=== PATIENT | female | born 1930 | race American Indian/Alaskan Native ===

== ENCOUNTER 2017-02-16 11:24 | Inpatient (IN) | payer MEDICARE ==
[2017-02-16 12:28] LABS: Anion Gap 19 mmol/L; Blood Urea Nitrogen 12 mg/dL (7-17); Calcium 9.3 mg/dL (8.4-10.2); Carbon Dioxide 23 mmol/L (22-30); Chloride 103.5 mmol/L (98-107); Glucose 117 mg/dL (65-100); Potassium 4.1 mmol/L (3.6-5.0); Sodium 141 mmol/L (137-145)
[2017-02-16] MEDS ORDERED: MORPHINE IV ONE (14:25)
[2017-02-16] MEDS ORDERED: ZOFRAN IV ONE (14:25)
--- NOTE | 2017-02-16 14:36 | Emergency Department Report ---
HPI - General Chief Complaint: Chest Pain Time Seen by Provider: 02/16/17 14:10 - HPI HPI: Room 4 The patient is an 86-year-old female presenting with a chief complaint of chest pain. The patient states for the past 2-3 days she has had intermittent left chest pain described as a soreness in nature. Patient states she has slight shortness of breath and diaphoresis associated with the chest pain. Patient denies nausea or vomiting. Patient also complains of dizziness. Patient states she's never had a stress test or cardiac catheterization. The patient currently gives her pain a score of 6/10 Location: Left chest Duration: 2-3 days Quality: Soreness Severity: 6/10 Modifying factors: [see above] Context: [see above] Mode of transportation: [not driving] ED Past Medical Hx - Past Medical History Hx GERD: Yes - Surgical History Past Surgical History?: No - Family History Family history: no significant - Social History Smoking Status: Never Smoker Substance Use Type: None - Medications Home Medications: Home Medications Medication Instructions Recorded Confirmed Last Taken Type HYDROcodone/ACETAMINOPHEN 1 tab PO PRN 12/26/13 02/16/17 02/16/17 History [Hydrocodon-Acetaminoph 7.5-325] Diazepam [Diazepam] 10 mg PO QHS 02/16/17 02/16/17 02/15/17 History Meloxicam [Mobic] 15 mg PO DAILY 02/16/17 02/16/17 Unknown History ED Review of Systems ROS: Stated complaint: BACK/UPPER CHEST PAIN Other details as noted in HPI Comment: All other systems reviewed and negative Constitutional: diaphoresis ENT: denies: ear pain, throat pain Respiratory: shortness of breath Cardiovascular: chest pain Endocrine: no symptoms reported Gastrointestinal: denies: abdominal pain, nausea, diarrhea Genitourinary: denies: urgency, dysuria, discharge Musculoskeletal: back pain Skin: denies: rash, lesions Neurological: denies: headache, weakness, paresthesias Psychiatric: denies: anxiety, depression Hematological/Lymphatic: denies: easy bleeding, easy bruising Physical Exam - Physical Exam Vital Signs: Vital Signs 02/16/17 11:50 Temperature 98.1 F Pulse Rate 82 Respiratory 20 Rate Blood Pressure 132/61 O2 Sat by Pulse 99 Oximetry Physical Exam: GENERAL: The patient is well-developed well-nourished female lying on stretcher not appearing to be in acute distress. [] HEENT: Normocephalic. Atraumatic. Extraocular motions are intact. Patient has moist mucous membranes. NECK: Supple. Trachea midline CHEST/LUNGS: Clear to auscultation. There is no respiratory distress noted. HEART/CARDIOVASCULAR: Regular. There is no tachycardia. There is no gallop rub or murmur. ABDOMEN: Abdomen is soft, nontender. Patient has normal bowel sounds. There is no abdominal distention. SKIN: There is no rash. There is no edema. There is no diaphoresis. NEURO: The patient is awake, alert, and oriented. The patient is cooperative. The patient has normal speech MUSCULOSKELETAL: There is no evidence of acute injury. ED Course Vital Signs 02/16/17 11:50 Temperature 98.1 F Pulse Rate 82 Respiratory 20 Rate Blood Pressure 132/61 O2 Sat by Pulse 99 Oximetry ED Medical Decision Making - Lab Data Result diagrams: 02/16/17 14:54 02/16/17 12:00 Laboratory Tests 02/16/17 02/16/17 02/16/17 12:00 14:54 14:54 WBC 7.3 RBC 4.23 Hgb 11.8 Hct 36.5 MCV 86 MCH 28 MCHC 32 RDW 14.2 Plt Count 207 Lymph % (Auto) Blogs Manager Barton % (Auto) Blogs Manager Eos % (Auto) Blogs Manager Baso % (Auto) Blogs Manager Lymph # Blogs Manager Barton # Blogs Manager Eos # Blogs Manager Baso # Blogs Manager Seg Neutrophils % Blogs Manager Seg Neutrophils # Blogs Manager Sodium 141 Potassium 4.1 Chloride 103.5 Carbon Dioxide 23 Anion Gap 19 BUN 12 Creatinine 0.6 L Estimated GFR > 60 BUN/Creatinine Ratio 20.00 Glucose 117 H Calcium 9.3 Troponin T < 0.010 < 0.010 - EKG Data -: EKG Interpreted by Me EKG shows normal: sinus rhythm Rate: normal - EKG Data When compared to previous EKG there are: no significant change Interpretation: unchanged when compared t (02/25/2012) - Radiology Data Radiology results: image reviewed (chest x-ray) interpreted by me: Chest x-ray-no focal infiltrates, no pneumothorax - Differential Diagnosis ACS, GERD, pericarditis Critical care attestation.: If time is entered above; I have spent that time in minutes in the direct care of this critically ill patient, excluding procedure time. ED Disposition Clinical Impression: Chest pain Disposition: OP ADMITTED IP TO THIS HOSP Is pt being admited?: Yes Does the pt Need Aspirin: Yes Condition: Stable Instructions: Chest Pain (ED) Referrals: PRIMARY CARE,MD [Primary Care Provider] - 3-5 Days Time of Disposition: 15:33 (hospitalist notified)
--- NOTE | 2017-02-16 14:43 | Admit Criteria Form ---
Admission Criteria Documentation: CHEST PAIN Clinical Indications for Admission to Inpatient Care (Place 'X' for any and all applicable criteria): Admission is indicated for chest pain and ANY ONE of the following(1)(2)(3)(4)(5 ): [ ]I. Angina with acute coronary syndrome (Also use Myocardial Infarction or Angina guideline) [ ]II. Hemodynamic instability [ ]III. Angina needing acute intervention as indicated by ALL of the following( 11)(12): [ ]a) Unstable angina is present as indicated by angina that is ANY ONE of the following: [ ]i) New onset [ ]ii) Nocturnal [ ]iii) Prolonged at rest [ ]iv) Progressive [ ]b) Angina warrants acute intervention as indicated by ANY ONE of the following: [ ]i) Recurrent angina (e.g, not responding as previously to treatment) [ ]ii) Angina at rest or with low-level activities despite initial medical therapy [ ]iii) New or presumably new ST-segment depression on ECG [ ]iv) Signs or symptoms of heart failure (eg, dyspnea, pulmonary edema) [ ]v) New or worsening mitral regurgitation [ ]vi) Hemodynamic instability [ ]vii) Dangerous arrhythmia (eg, sustained ventricular tachycardia) [ ]viii) History of percutaneous coronary intervention within 6 months [ ]ix) History of coronary artery bypass graft surgery [ ]x) LEFTY risk score of 2 or greater[A] [ ]xi) History of Diabetes(14) [ ]xii) High-risk cardiac ischemia findings on noninvasive testing (e.g, echocardiogram, treadmill testing, nuclear scan) [ ]xiii) Chronic renal insufficiency (ie, estimated GFR less than 60 mL/min/1.732m) [ ]xiv) Left ventricular ejection fraction less than 40% [ ]IV. Evidence of LA (eg, cardiac biomarkers positive, ST-segment elevation on ECG) also use Myocardial Infarction Criteria Form. [ ]V. Pulmonary edema [ ]. Respiratory distress [ ]VII. Chest pain indicative of serious diagnosis other than coronary artery disease (eg, aortic dissection) [ ]VIII. Contraindications and/or Inappropriate clinical situations for Observational Care in patients with Chest Pain, when ANY ONE of the following is required: [ ]a) Patient with risk factor for pulmonary embolism, acute coronary syndrome and myocardial infarction (18) [ ]b) Patient with Pulmonary embolism require an average LOS of 4.3 days, therefore emergency department observation management is inappropriate 18,23 [ ]c) Painful condition/s in the elderly, have the highest rate of recidivism after emergency department observation management (10.8%) 20,21,22 [ ]d) Elevated cardiac biomarker requires intensive and exhaustive care (19) [ X]IX. General contraindications and/or Inappropriate clinical situations for Observational Care in patients with Chest Pain, when ANY ONE of the following is required: [X ]a) Prediction of prolongation of LOS based on ANY ONE of the following may be considered as a contraindication for observational care 2, 3, 4, 5, 6, 7, 8, 9, 10, 11 [X ]i) Age > 65 yrs. [ ]ii) Patient arriving by ambulance [ ]iii) Patient with high acuity [ ]iv) Patient requiring vital sign monitoring [ ]v) Patient on IV medication [ ]b) Systolic blood pressures 180mmHg 3,12 [ ]c) Patient with altered mental status including delirium and other alteration of consciousness, (3) [ ]d) Patient whose discharge disposition will be to a penitentiary home or rehabilitation home should not be managed in Emergency Department Observation Unit. CMS rule requires 3 days hospital stay before such placement. 3,13 [ ]e) Patient with failure to thrive due to broad array of etiologies 3,16,17 [ ]f) Inability to ambulate 3,14 Extended stay beyond goal length of stay may be needed for (1)(28): [ ]a) Specific condition diagnosed after evaluation (eg, pulmonary embolism, aortic dissection) [ ]b) Unstable angina [ ]c) Continued suspicion of acute coronary syndrome with inability to complete needed cardiac evaluation (eg, patient clinically unable to undergo stress testing) [ ]d) Myocardial infarction (Contents from ANGINA and CHEST PAIN clinical indications for admission to inpatient care have been integrated in this form) The original [facility] [employer] [employer] content created by [employer] has been revised. The portions of the content which have been revised are identified through the use of italic text or in bold, and [facility] [employer] has neither reviewed nor approved the modified material. All other unmodified content is copyright [facility] [employer]. Please see references footnoted in the original [facility] [employer] edition 2016 Admission Criteria Met: Yes
--- NOTE | 2017-02-16 15:00 | XRay Report ---
AP CHEST: HISTORY: chest pain AP view of the chest demonstrates a normal mediastinal and cardiac contour with clear lungs and normal bony and soft tissue structures. IMPRESSION: Unremarkable AP chest.
[2017-02-16 15:06] LABS: Hematocrit 36.5 % (30.3-42.9); Hemoglobin 11.8 gm/dl (10.1-14.3); Mean Corpuscular HGB Conc 32 % (30-34); Mean Corpuscular Hemoglobin 28 pg (28-32); Mean Corpuscular Volume 86 fl (79-97); Platelet Count 207 K/mm3 (140-440); Red Blood Count 4.23 M/mm3 (3.65-5.03); Red Cell Distribution Width 14.2 % (13.2-15.2); White Blood Count 7.3 K/mm3 (4.5-11.0)
[2017-02-16] MEDS ORDERED: NITRO-BID 2% TP ONE (15:34)
[2017-02-16] MEDS ORDERED: ASPIRIN PO ONE (15:34)
[2017-02-16] MEDS ORDERED: MILK OF MAGNESIA PO PRN (15:54)
[2017-02-16] MEDS ORDERED: DUONEB 0.5 MG-3 MG/3 ML SOLN IH PRN (15:54)
[2017-02-16] MEDS ORDERED: TYLENOL PO PRN (15:54)
[2017-02-16] MEDS ORDERED: DULCOLAX PR PRN (15:54)
[2017-02-16] MEDS ORDERED: ZOFRAN IV PRN (15:54)
[2017-02-16] MEDS ORDERED: SODIUM CHLORIDE FLUSH SYRINGE 10 ML IV PRN (15:56)
[2017-02-16] MEDS ORDERED: NORCO 7.5/325 PO SCH (16:00)
--- NOTE | 2017-02-16 16:02 | History and Physical Report ---
History of Present Illness Chief complaint: My chest hurts History of present illness: 86 YO Female with GERD, Obesity presents to ED for evaluation. Pt states that she has experienced pain in her chest for that past 3 days with worsening symptoms over the past 1 day. Pt states that the pain is 6/10, intermittent, localized to the left chest, nonradiating, but is associated with shortness of breath and diaphoresis. Patient denies NVD, Palpitations, Syncope, Vertigo, Seizures, Loss of Consciousness, productive cough, orthopnea, PND,Skin rashes, or recent ill contacts . Past History Past Medical History: GERD Past Surgical History: No surgical history, Other (reviewed) Social history: . denies: smoking, alcohol abuse, prescription drug abuse Family history: diabetes, hypertension Medications and Allergies Allergies Allergy/AdvReac Type Severity Reaction Status Date / Time No Known Allergies Allergy Unverified 12/26/13 15:50 Home Medications Medication Instructions Recorded Confirmed Last Taken Type HYDROcodone/ACETAMINOPHEN 1 tab PO PRN 12/26/13 02/16/17 02/16/17 History [Hydrocodon-Acetaminoph 7.5-325] Diazepam [Diazepam] 10 mg PO QHS 02/16/17 02/16/17 02/15/17 History Meloxicam [Mobic] 15 mg PO DAILY 02/16/17 02/16/17 Unknown History Active Meds: Active Medications Acetaminophen (Tylenol) 650 mg PO Q4H PRN PRN Reason: Pain MILD(1-3)/Fever >100.5/HERNANDEZ Acetaminophen/Hydrocodone Bitart ([place] 7.5/325) 1 each PO PRN JOSE E Albuterol/Ipratropium (Duoneb 0.5 Mg-3 Mg/3 Ml Soln) 1 ampul IH Q6HRT PRN PRN Reason: Wheezing Bisacodyl (Dulcolax) 10 mg [place] QDAY PRN PRN Reason: Constipation unrelieved by MOM Diazepam (Valium) 10 mg PO QHS JOSE E Magnesium Hydroxide (Milk Of Magnesia) 30 ml PO Q4H PRN PRN Reason: Constipation Miscellaneous Medication (Meloxicam [Mobic]) 15 mg PO DAILY [facility] Ondansetron HCl (Zofran) 4 mg IV Q8H PRN PRN Reason: N/V unrelieved by Reglan Sodium Chloride (Sodium Chloride Flush Syringe 10 Ml) 10 ml IV PRN PRN PRN Reason: LINE FLUSH Review of Systems All systems: negative Cardiovascular: chest pain Exam - Constitutional Vitals: Temp Pulse Resp BP Pulse Ox 98.1 F 65 16 130/63 100 02/16/17 11:50 02/16/17 14:33 02/16/17 14:33 02/16/17 14:33 02/16/17 14:33 General appearance: Present: obese - EENT Eyes: Present: PERRL ENT: hearing intact, clear oral mucosa - Neck Neck: Present: supple, normal ROM - Respiratory Respiratory effort: normal Respiratory: bilateral: CTA - Cardiovascular Heart Sounds: Present: S1 & S2. Absent: rub, click - Extremities Extremities: pulses symmetrical, No edema Peripheral Pulses: within normal limits - Abdominal General gastrointestinal: Present: soft, non-tender, non-distended, normal bowel sounds Female genitourinary: Present: normal - Integumentary Integumentary: Present: clear, warm, dry - Musculoskeletal Musculoskeletal: gait normal, strength equal bilaterally - Psychiatric Psychiatric: appropriate mood/affect, intact judgment & insight - Neurologic Neurologic: CNII-XII intact, moves all extremities Results - Labs CBC & Chem 7: 02/16/17 14:54 02/16/17 12:00 Labs: Abnormal lab results 02/16/17 Range/Units 12:00 Creatinine 0.6 L (0.7-1.2) mg/dL Glucose 117 H (65-100) mg/dL Assessment and Plan - Patient Problems (1) ACS (acute coronary syndrome) Current Visit: Yes Status: Acute Plan to address problem: Chest Pain protocol: serial cardiac enzymes, ekg, telemetry, cardiology consulted, echo, stress test. (2) GERD (gastroesophageal reflux disease) Current Visit: Yes Status: Acute Qualifiers: Esophagitis presence: E Plan to address problem: ppi therapy (3) Obesity Current Visit: Yes Status: Acute Qualifiers: Obesity type: O Obesity severity: O Plan to address problem: Pt counseled regarding increased physical activity, balanced diet, (4) DVT prophylaxis Current Visit: Yes Status: Acute
[2017-02-16] MEDS ORDERED: PROVENTIL IH PRN (16:07)
[2017-02-16 17:28] LABS: Creatine Kinase MB 2.5 ng/mL (0.0-4.0)
[2017-02-16 17:29] LABS: Creatine Kinase 83 units/L (30-135)
[2017-02-16] MEDS: VALIUM PO SCH (22:07)
[2017-02-16 23:29] LABS: Creatine Kinase MB 2.4 ng/mL (0.0-4.0)
[2017-02-16 23:30] LABS: Creatine Kinase 73 units/L (30-135)
[2017-02-17] MEDS: PROTONIX PO SCH (09:00)
[2017-02-17] MEDS: MOBIC PO SCH (09:00)
[2017-02-17] MEDS ORDERED: NON-FORMULARY (Meloxicam [Mobic] 15 MG) PO SCH (10:00)
[2017-02-17] MEDS ORDERED: LEXISCAN IV ONE ×2 (10:45→10:50)
--- NOTE | 2017-02-17 11:30 | Consultation ---
History of Present Illness Consult date: 02/17/17 Consult reason: chest pain History of present illness: 86 YO Female with GERD, Obesity presents to ED for evaluation. Pt states that she has experienced pain in her chest for that past 3 days with worsening symptoms over the past 1 day. Pt states that the pain is 6/10, intermittent, localized to the left chest, nonradiating, but is associated with shortness of breath and diaphoresis. Patient denies NVD, Palpitations, Syncope, Vertigo, Seizures, Loss of Consciousness, productive cough, orthopnea, PND. Past History Past Medical History: GERD Past Surgical History: No surgical history, Other (reviewed) Social history: . denies: smoking, alcohol abuse, prescription drug abuse Family history: diabetes, hypertension Medications and Allergies Allergies Allergy/AdvReac Type Severity Reaction Status Date / Time No Known Allergies Allergy Unverified 12/26/13 15:50 Home Medications Medication Instructions Recorded Confirmed Last Taken Type HYDROcodone/ACETAMINOPHEN 1 tab PO PRN 12/26/13 02/16/17 02/16/17 History [Hydrocodon-Acetaminoph 7.5-325] Diazepam [Diazepam] 10 mg PO QHS 02/16/17 02/16/17 02/15/17 History Meloxicam [Mobic] 15 mg PO DAILY 02/16/17 02/16/17 Unknown History Active Meds: Active Medications Acetaminophen (Tylenol) 650 mg PO Q4H PRN PRN Reason: Pain MILD(1-3)/Fever >100.5/HERNANDEZ Acetaminophen/Hydrocodone Bitart ([place] 7.5/325) 1 each PO Q4H PRN PRN Reason: Pain, Moderate (4-6) Albuterol (Proventil) 2.5 mg IH Q4HRT PRN PRN Reason: Shortness Of Breath Bisacodyl (Dulcolax) 10 mg [place] QDAY PRN PRN Reason: Constipation unrelieved by MOM Diazepam (Valium) 10 mg PO QHS [facility] Last Admin: 02/16/17 22:07 Dose: 10 mg Magnesium Hydroxide (Milk Of Magnesia) 30 ml PO Q4H PRN PRN Reason: Constipation Meloxicam (Mobic) 15 mg PO DAILY [facility] Last Admin: 02/17/17 09:00 Dose: 15 mg Ondansetron HCl (Zofran) 4 mg IV Q8H PRN PRN Reason: N/V unrelieved by Reglan Pantoprazole Sodium (Protonix) 40 mg PO QDAY JOSE E Last Admin: 02/17/17 09:00 Dose: 40 mg Sodium Chloride (Sodium Chloride Flush Syringe 10 Ml) 10 ml IV PRN PRN PRN Reason: LINE FLUSH Review of Systems All systems: negative Physical Examination Vital Signs Temp Pulse Resp BP Pulse Ox 98.1 F 82 20 132/61 99 02/16/17 11:50 02/16/17 11:50 02/16/17 11:50 02/16/17 11:50 02/16/17 11:50 General appearance: no acute distress HEENT: Positive: PERRL Neck: Positive: neck supple, Bruit Cardiac: Positive: Reg Rate and Rhythm, Systolic Murmur Lungs: Positive: Normal Exam Abdomen: Positive: Soft Extremities: Absent: edema Results 02/16/17 14:54 02/16/17 12:00 Cardiac Enzymes 02/16/17 02/16/17 Range/Units 16:15 22:50 CK-MB (CK-2) 2.5 2.4 (0.0-4.0) ng/mL Lipids 02/16/17 Range/Units 16:15 Triglycerides 54 (2-149) mg/dL Cholesterol 200 H (50-199) mg/dL HDL Cholesterol 73 H (40-59) mg/dL Cholesterol/HDL Ratio 2.73 % Assessment and Plan Chest Pain MPI 05/02/2016 - No ischemia Severe aortic stenosis Paradoxical low flow low gradient aortic stenosis Severe mitral stenosis (MVA 0.7-0.8 cm2 by continuity) History of GERD Recommendations: Cancel stress test Proceed with LHC and RHC on monday asa 81 mg po daily
[2017-02-17] MEDS: HALFPRIN EC PO SCH (14:00)
--- NOTE | 2017-02-17 14:32 | Progress Note ---
Assessment and Plan Assessment and plan: -Chest pain -Severe , MS, cardiac catheterization on Monday History Interval history: Patient seen and examined. Follow up on chest pain. Overnight uneventful. No sob, n/v or severe headaches. Imaging, old records, testing, labs, nursing notes reviewed. Plan discussed with patient. Hospitalist Physical - Physical exam Narrative exam: GEN: WDWN, NAD, AWAKE, ALERT, ORIENTATED CVS: RRR, NORMAL S1S2 LUNGS/CHEST: CTA B, NORMAL CHEST EXPANSION B, GOOD AIR ENTRY B ABD: SOFT NTND, GBS, NO REBOUND OR GUARDING EXT/SKIN: NO SIGNIFICANT EDEMA OR RASH MSK: FROM X 4 EXTREMITIES NEURO: CN 2-12 GROSSLY INTACT, NO new FOCAL DEFICITS PSY: CALM - Constitutional Vitals: Temp Pulse Resp BP Pulse Ox 97.5 F L 78 20 120/59 98 02/17/17 07:39 02/17/17 11:42 02/17/17 11:42 02/17/17 11:42 02/17/17 11:42 General appearance: Present: no acute distress Results - Labs CBC & Chem 7: 02/16/17 14:54 02/16/17 12:00 Labs: Laboratory Last Values WBC 7.3 K/mm3 (4.5-11.0) 02/16/17 14:54 RBC 4.23 M/mm3 (3.65-5.03) 02/16/17 14:54 Hgb 11.8 gm/dl (10.1-14.3) 02/16/17 14:54 Hct 36.5 % (30.3-42.9) 02/16/17 14:54 MCV 86 fl (79-97) 02/16/17 14:54 MCH 28 pg (28-32) 02/16/17 14:54 MCHC 32 % (30-34) 02/16/17 14:54 RDW 14.2 % (13.2-15.2) 02/16/17 14:54 Plt Count 207 K/mm3 (140-440) 02/16/17 14:54 Lymph % (Auto) Line Inspector 02/16/17 14:54 [place] % (Auto) Line Inspector 02/16/17 14:54 Eos % (Auto) Line Inspector 02/16/17 14:54 Baso % (Auto) Line Inspector 02/16/17 14:54 Lymph # Line Inspector 02/16/17 14:54 [place] # Line Inspector 02/16/17 14:54 Eos # Line Inspector 02/16/17 14:54 Baso # Line Inspector 02/16/17 14:54 Seg Neutrophils % Line Inspector 02/16/17 14:54 Seg Neutrophils # Line Inspector 02/16/17 14:54 Sodium 141 mmol/L (137-145) 02/16/17 12:00 Potassium 4.1 mmol/L (3.6-5.0) 02/16/17 12:00 Chloride 103.5 mmol/L (98-107) 02/16/17 12:00 Carbon Dioxide 23 mmol/L (22-30) 02/16/17 12:00 Anion Gap 19 mmol/L 02/16/17 12:00 BUN 12 mg/dL (7-17) 02/16/17 12:00 Creatinine 0.6 mg/dL (0.7-1.2) L 02/16/17 12:00 Estimated GFR > 60 ml/min 02/16/17 12:00 BUN/Creatinine Ratio 20.00 % 02/16/17 12:00 Glucose 117 mg/dL (65-100) H 02/16/17 12:00 Calcium 9.3 mg/dL (8.4-10.2) 02/16/17 12:00 Total Creatine Kinase 73 units/L (30-135) 02/16/17 22:50 CK-MB (CK-2) 2.4 ng/mL (0.0-4.0) 02/16/17 22:50 CK-MB (CK-2) Rel Index 3.2 (0-4) 02/16/17 22:50 Troponin T < 0.010 ng/mL (0.00-0.029) 02/16/17 22:50 Triglycerides 54 mg/dL (2-149) 02/16/17 16:15 Cholesterol 200 mg/dL (50-199) H 02/16/17 16:15 LDL Cholesterol Direct 117 mg/dL (50-130) 02/16/17 16:15 HDL Cholesterol 73 mg/dL (40-59) H 02/16/17 16:15 Cholesterol/HDL Ratio 2.73 % 02/16/17 16:15
[2017-02-17] MEDS: VALIUM PO SCH (23:07)
[2017-02-18] MEDS: HALFPRIN EC PO SCH (09:14)
[2017-02-18] MEDS: MOBIC PO SCH (09:14)
[2017-02-18] MEDS: PROTONIX PO SCH (09:15)
--- NOTE | 2017-02-18 13:09 | Progress Note ---
Assessment and Plan Assessment and plan: Patient is 86-year-old woman with history of GERD who presents with chest pain shortness of breath. 2D Echo: severe concentric left ventricular hypertrophy, estimated EF 60-65 %, abnormal left ventricular systolic function, severe aortic leaflet calcification, severe aortic stenosis. Paradoxical low flow low gradient severe aortic stenosis. Mean gradient aortic valve is 27 mmHg, aortic valve area E to 0.65 cm, mild aortic regurgitation, severe mitral stenosis. -Chest pain -Severe , MS, cardiac catheterization on Monday History Interval history: Patient seen and examined. Follow up on chest pain which has resolved. Overnight uneventful. No sob, n/v or severe headaches. Imaging, old records, testing, labs, nursing notes reviewed. Plan discussed with patient. Hospitalist Physical - Physical exam Narrative exam: GEN: WDWN, NAD, AWAKE, ALERT, ORIENTATED CVS: RRR, NORMAL S1S2 LUNGS/CHEST: CTA B, NORMAL CHEST EXPANSION B, GOOD AIR ENTRY B ABD: SOFT NTND, GBS, NO REBOUND OR GUARDING EXT/SKIN: NO SIGNIFICANT EDEMA OR RASH MSK: FROM X 4 EXTREMITIES NEURO: CN 2-12 GROSSLY INTACT, NO new FOCAL DEFICITS PSY: CALM - Constitutional Vitals: Temp Pulse Resp BP Pulse Ox 97.8 F 72 18 140/63 98 02/18/17 11:17 02/18/17 11:29 02/18/17 11:17 02/18/17 11:17 02/18/17 11:17 General appearance: Present: no acute distress Results - Labs CBC & Chem 7: 02/16/17 14:54 02/16/17 12:00 Labs: Laboratory Last Values WBC 7.3 K/mm3 (4.5-11.0) 02/16/17 14:54 RBC 4.23 M/mm3 (3.65-5.03) 02/16/17 14:54 Hgb 11.8 gm/dl (10.1-14.3) 02/16/17 14:54 Hct 36.5 % (30.3-42.9) 02/16/17 14:54 MCV 86 fl (79-97) 02/16/17 14:54 MCH 28 pg (28-32) 02/16/17 14:54 MCHC 32 % (30-34) 02/16/17 14:54 RDW 14.2 % (13.2-15.2) 02/16/17 14:54 Plt Count 207 K/mm3 (140-440) 02/16/17 14:54 Lymph % (Auto) [place]ender 02/16/17 14:54 [place] % (Auto) [place] Tender 02/16/17 14:54 Eos % (Auto) [place]ender 02/16/17 14:54 Baso % (Auto) [place] 02/16/17 14:54 Lymph # [place] Tender 02/16/17 14:54 [place] # Grey Tender 02/16/17 14:54 Eos # [place] Tender 02/16/17 14:54 Baso # [place]ender 02/16/17 14:54 Seg Neutrophils % [place] Tender 02/16/17 14:54 Seg Neutrophils # [place] 02/16/17 14:54 Sodium 141 mmol/L (137-145) 02/16/17 12:00 Potassium 4.1 mmol/L (3.6-5.0) 02/16/17 12:00 Chloride 103.5 mmol/L (98-107) 02/16/17 12:00 Carbon Dioxide 23 mmol/L (22-30) 02/16/17 12:00 Anion Gap 19 mmol/L 02/16/17 12:00 BUN 12 mg/dL (7-17) 02/16/17 12:00 Creatinine 0.6 mg/dL (0.7-1.2) L 02/16/17 12:00 Estimated GFR > 60 ml/min 02/16/17 12:00 BUN/Creatinine Ratio 20.00 % 02/16/17 12:00 Glucose 117 mg/dL (65-100) H 02/16/17 12:00 Calcium 9.3 mg/dL (8.4-10.2) 02/16/17 12:00 Total Creatine Kinase 73 units/L (30-135) 02/16/17 22:50 CK-MB (CK-2) 2.4 ng/mL (0.0-4.0) 02/16/17 22:50 CK-MB (CK-2) Rel Index 3.2 (0-4) 02/16/17 22:50 Troponin T < 0.010 ng/mL (0.00-0.029) 02/16/17 22:50 Triglycerides 54 mg/dL (2-149) 02/16/17 16:15 Cholesterol 200 mg/dL (50-199) H 02/16/17 16:15 LDL Cholesterol Direct 117 mg/dL (50-130) 02/16/17 16:15 HDL Cholesterol 73 mg/dL (40-59) H 02/16/17 16:15 Cholesterol/HDL Ratio 2.73 % 02/16/17 16:15
--- NOTE | 2017-02-18 13:43 | Progress Note ---
Assessment and Plan Chest Pain MPI 05/02/2016 - No ischemia Severe aortic stenosis Paradoxical low flow low gradient aortic stenosis Severe mitral stenosis (MVA 0.7-0.8 cm2 by continuity) History of GERD Recommendations: Proceed with LHC and RHC on monday Subjective Date of service: 02/18/17 Interval history: No cardiac complaints. No further chest pain. Objective Vital Signs Temp Pulse Pulse Pulse Pulse Resp BP 02/18/17 11:29 72 02/18/17 11:17 97.8 F 63 18 140/63 02/18/17 09:15 18 02/18/17 09:14 18 02/18/17 07:46 98.1 F 64 18 135/60 02/18/17 05:33 97.8 F 76 18 127/65 02/18/17 00:00 98.2 F 70 18 123/60 02/17/17 22:00 65 18 02/17/17 20:01 97.8 F 70 18 133/62 02/17/17 15:40 98.0 F 80 20 122/58 Pulse Ox 02/18/17 11:29 02/18/17 11:17 98 02/18/17 09:15 02/18/17 09:14 02/18/17 07:46 100 02/18/17 05:33 100 02/18/17 00:00 99 02/17/17 22:00 02/17/17 20:01 97 02/17/17 15:40 98 - Physical Examination HEENT: Positive: PERRL Neck: Positive: neck supple, Bruit Cardiac: Positive: Reg Rate and Rhythm, Systolic Murmur Lungs: Positive: clear to auscultation Abdomen: Positive: Soft Extremities: Absent: edema
[2017-02-18] MEDS: VALIUM PO SCH (21:41)
[2017-02-18] MEDS: NORCO 7.5/325 PO PRN (21:43)
[2017-02-19] MEDS: MOBIC PO SCH (10:19)
[2017-02-19] MEDS: NORCO 7.5/325 PO PRN ×2 (10:20→21:48)
[2017-02-19] MEDS: HALFPRIN EC PO SCH (10:21)
[2017-02-19] MEDS: PROTONIX PO SCH (10:22)
--- NOTE | 2017-02-19 10:54 | Progress Note ---
Assessment and Plan Assessment and plan: Patient is 86-year-old woman with history of GERD who presents with chest pain shortness of breath. 2D Echo: severe concentric left ventricular hypertrophy, estimated EF 60-65 %, abnormal left ventricular systolic function, severe aortic leaflet calcification, severe aortic stenosis. Paradoxical low flow low gradient severe aortic stenosis. Mean gradient aortic valve is 27 mmHg, aortic valve area E to 0.65 cm, mild aortic regurgitation, severe mitral stenosis. -Chest pain -Severe , MS, cardiac catheterization on Monday spoke with daughter Anne History Interval history: Patient seen and examined. Follow up on chest pain which has resolved. Overnight uneventful. No sob, n/v or severe headaches. Imaging, old records, testing, labs, nursing notes reviewed. Plan discussed with patient. Hospitalist Physical - Physical exam Narrative exam: GEN: WDWN, NAD, AWAKE, ALERT, ORIENTATED CVS: RRR, NORMAL S1S2 LUNGS/CHEST: CTA B, NORMAL CHEST EXPANSION B, GOOD AIR ENTRY B ABD: SOFT NTND, GBS, NO REBOUND OR GUARDING EXT/SKIN: NO SIGNIFICANT EDEMA OR RASH MSK: FROM X 4 EXTREMITIES NEURO: CN 2-12 GROSSLY INTACT, NO new FOCAL DEFICITS PSY: CALM - Constitutional Vitals: Temp Pulse Resp BP Pulse Ox 97.6 F 70 20 115/53 97 02/19/17 07:22 02/19/17 07:22 02/19/17 07:22 02/19/17 07:22 02/19/17 07:22 General appearance: Present: no acute distress Results - Labs CBC & Chem 7: 02/16/17 14:54 02/16/17 12:00 Labs: Laboratory Last Values WBC 7.3 K/mm3 (4.5-11.0) 02/16/17 14:54 RBC 4.23 M/mm3 (3.65-5.03) 02/16/17 14:54 Hgb 11.8 gm/dl (10.1-14.3) 02/16/17 14:54 Hct 36.5 % (30.3-42.9) 02/16/17 14:54 MCV 86 fl (79-97) 02/16/17 14:54 MCH 28 pg (28-32) 02/16/17 14:54 MCHC 32 % (30-34) 02/16/17 14:54 RDW 14.2 % (13.2-15.2) 02/16/17 14:54 Plt Count 207 K/mm3 (140-440) 02/16/17 14:54 Lymph % (Auto) Final Assembly Worker 02/16/17 14:54 [place] % (Auto) Final Assembly Worker 02/16/17 14:54 Eos % (Auto) Final Assembly Worker 02/16/17 14:54 Baso % (Auto) Final Assembly Worker 02/16/17 14:54 Lymph # Final Assembly Worker 02/16/17 14:54 [place] # Final Assembly Worker 02/16/17 14:54 Eos # Final Assembly Worker 02/16/17 14:54 Baso # Final Assembly Worker 02/16/17 14:54 Seg Neutrophils % Final Assembly Worker 02/16/17 14:54 Seg Neutrophils # Final Assembly Worker 02/16/17 14:54 Sodium 141 mmol/L (137-145) 02/16/17 12:00 Potassium 4.1 mmol/L (3.6-5.0) 02/16/17 12:00 Chloride 103.5 mmol/L (98-107) 02/16/17 12:00 Carbon Dioxide 23 mmol/L (22-30) 02/16/17 12:00 Anion Gap 19 mmol/L 02/16/17 12:00 BUN 12 mg/dL (7-17) 02/16/17 12:00 Creatinine 0.6 mg/dL (0.7-1.2) L 02/16/17 12:00 Estimated GFR > 60 ml/min 02/16/17 12:00 BUN/Creatinine Ratio 20.00 % 02/16/17 12:00 Glucose 117 mg/dL (65-100) H 02/16/17 12:00 Calcium 9.3 mg/dL (8.4-10.2) 02/16/17 12:00 Total Creatine Kinase 73 units/L (30-135) 02/16/17 22:50 CK-MB (CK-2) 2.4 ng/mL (0.0-4.0) 02/16/17 22:50 CK-MB (CK-2) Rel Index 3.2 (0-4) 02/16/17 22:50 Troponin T < 0.010 ng/mL (0.00-0.029) 02/16/17 22:50 Triglycerides 54 mg/dL (2-149) 02/16/17 16:15 Cholesterol 200 mg/dL (50-199) H 02/16/17 16:15 LDL Cholesterol Direct 117 mg/dL (50-130) 02/16/17 16:15 HDL Cholesterol 73 mg/dL (40-59) H 02/16/17 16:15 Cholesterol/HDL Ratio 2.73 % 02/16/17 16:15
--- NOTE | 2017-02-19 11:04 | Progress Note ---
Assessment and Plan Chest Pain MPI 05/02/2016 - No ischemia Severe aortic stenosis Paradoxical low flow low gradient aortic stenosis Severe mitral stenosis (MVA 0.7-0.8 cm2 by continuity) History of GERD Recommendations: Proceed with LHC and RHC on monday Subjective Date of service: 02/19/17 Interval history: No further chest pain Objective Vital Signs Temp Pulse Pulse Pulse Resp BP BP 02/19/17 07:22 97.6 F 70 20 115/53 02/19/17 05:32 97.6 F 61 20 124/60 02/19/17 01:00 98.0 F 72 20 102/50 02/19/17 00:20 75 20 02/19/17 00:18 75 02/18/17 20:52 97.6 F 70 20 126/63 02/18/17 15:36 98.6 F 60 18 119/55 02/18/17 11:29 72 02/18/17 11:17 97.8 F 63 18 140/63 Pulse Ox 02/19/17 07:22 97 02/19/17 05:32 97 02/19/17 01:00 98 02/19/17 00:20 100 02/19/17 00:18 02/18/17 20:52 100 02/18/17 15:36 99 02/18/17 11:29 02/18/17 11:17 98 - Physical Examination HEENT: Positive: PERRL Neck: Positive: neck supple, Bruit Cardiac: Positive: Reg Rate and Rhythm, Systolic Murmur Lungs: Positive: clear to auscultation Abdomen: Positive: Soft, Active Bowel Sounds Extremities: Absent: edema
[2017-02-19] MEDS: VALIUM PO SCH (21:44)
[2017-02-20 07:10] LABS: Hematocrit 35.8 % (30.3-42.9); Hemoglobin 11.7 gm/dl (10.1-14.3); Mean Corpuscular HGB Conc 33 % (30-34); Mean Corpuscular Hemoglobin 28 pg (28-32); Mean Corpuscular Volume 86 fl (79-97); Platelet Count 187 K/mm3 (140-440); Red Blood Count 4.18 M/mm3 (3.65-5.03); Red Cell Distribution Width 13.9 % (13.2-15.2)
[2017-02-20 07:20] LABS: INR 1.03 (0.87-1.13)
[2017-02-20 07:21] LABS: Partial Thromboplastin Time 46.1 Sec. (24.2-36.6)
[2017-02-20 08:31] LABS: Anion Gap 16 mmol/L; Blood Urea Nitrogen 12 mg/dL (7-17); Calcium 8.7 mg/dL (8.4-10.2); Carbon Dioxide 24 mmol/L (22-30); Chloride 104.9 mmol/L (98-107); Glucose 88 mg/dL (65-100); Potassium 4.3 mmol/L (3.6-5.0); Sodium 141 mmol/L (137-145)
[2017-02-20] MEDS ORDERED: NACL 0.9% 500 ML 500 ML ONE (08:39)
[2017-02-20] MEDS ORDERED: ECOTRIN PO ONE ×2 (08:40→09:30)
[2017-02-20] MEDS ORDERED: SUBLIMAZE ONE (08:58)
[2017-02-20] MEDS ORDERED: HEPARIN/NS 5000 UNIT/500ML(CATH LAB) 1,500 ML IR ONE (08:58)
[2017-02-20] MEDS ORDERED: XYLOCAINE 2% INFILTRATI ONE (08:58)
[2017-02-20] MEDS ORDERED: VERSED ONE (08:58)
[2017-02-20] MEDS ORDERED: NACL 0.9% 500 ML 500 ML IV SCH (10:00)
--- NOTE | 2017-02-20 10:49 | Event Note ---
Date: 02/20/17 Cardiac cath completed, no complications: Findings 1. Mild 2. Mild MS 3. Normal coronaries. OK for cardiac discharge, follow up [address] Duarte.
[2017-02-20] MEDS: HALFPRIN EC PO SCH (10:50)
[2017-02-20] MEDS: PROTONIX PO SCH (10:55)
[2017-02-20] MEDS: MOBIC PO SCH (10:55)
[2017-02-20] MEDS ORDERED: NACL 0.9% 1000 ML 1,000 ML IV SCH (11:00)
[2017-02-20 11:19] LABS: Basophils % (Manual) 0 % (0.0-1.8); Blastocytes % (Manual) 0 %; Diff Status Complete; RBC Morphology Normal
--- NOTE | 2017-02-20 11:59 | Discharge Summary ---
Providers - Providers Date of Admission: 02/16/17 15:54 Date of discharge: 02/20/17 Attending physician: PATRICK HAMM 02/16/17 Consult to Cardiac Rehabilitation [CONS] Routine Reason For Exam: Phase I 02/16/17 22:43 Consult to Physician [CONS] Routine Consulting Provider: MERLINE QUINONES Reason For Exam: chest pain Place consult to:: Dr. Quinones Notified:: Viktor RN Phone number called:: Was contact made?: Yes If yes, spoke with:: Klarissa-answering service Time called:: 07:44 02/20/17 10:59 Consult to Cardiac Rehabilitation [CONS] Routine Reason For Exam: Cardiac Rehab Evaluation Primary care physician: CAP SEWER Hospitalization Condition: Stable Hospital course: Patient is 86-year-old woman with history of GERD who presents with chest pains and shortness of breath. 2D Echo: severe concentric left ventricular hypertrophy , estimated EF 60-65 %, abnormal left ventricular systolic function, severe aortic leaflet calcification, severe aortic stenosis. Paradoxical low flow low gradient severe aortic stenosis. Mean gradient aortic valve is 27 mmHg, aortic valve area E to 0.65 cm, mild aortic regurgitation, severe mitral stenosis. -Chest pain, GERD related, added protonix -OA on mobic, add protonix - Mild , mild MS spoke with daughter Anne 02/1902/20/[address] Quinones, right and left heart catherization Cardiac cath completed, no complications: Findings 1. Mild 2. Mild MS 3. Normal coronaries. OK for cardiac discharge, follow up [address] Duarte. Disposition: DISCHARGED TO HOME OR SELFCARE Time spent for discharge: 33 minutes Core Measure Documentation - Palliative Care Palliative Care/ Comfort Measures: Not Applicable - Core Measures Any of the following diagnoses?: none - VTE Discharge Requirements Deep Vein Thrombosis/Pulmonary Embolism Present on Admission: No Has pt received <5 days of overlap therapy or INR<2.0: No Anticoagulant overlap therapy prescribed at discharge: No Contraindication No Overlap Therapy order at DC: Not Indicated Exam - Physical Exam Narrative exam: GEN: WDWN, NAD, AWAKE, ALERT, ORIENTATED CVS: RRR, NORMAL S1S2 LUNGS/CHEST: CTA B, NORMAL CHEST EXPANSION B, GOOD AIR ENTRY B ABD: SOFT NTND, GBS, NO REBOUND OR GUARDING EXT/SKIN: NO SIGNIFICANT EDEMA OR RASH MSK: FROM X 4 EXTREMITIES NEURO: CN 2-12 GROSSLY INTACT, NO new FOCAL DEFICITS PSY: CALM - Constitutional Vitals: Temp Pulse Resp BP Pulse Ox 97.8 F 68 18 119/53 100 02/19/17 20:30 02/20/17 03:12 02/19/17 20:30 02/19/17 20:30 02/19/17 20:30 Plan Activity: advance as tolerated (no strenous activites until cleared by PCP. ) Diet: low salt Special Instructions: record daily BP diary Follow up with: PRIMARY CARE, [Primary Care Provider] - 3-5 Days KRYSTAL DUARTE MD [Staff Physician] - 7 Days Prescriptions: Pantoprazole [Protonix TAB] 40 mg PO QDAY #30 tablet
--- NOTE | 2017-02-20 12:42 | Cardiac Catherization Report ---
CARDIAC CATHETERIZATION REASON FOR PROCEDURE: The patient is an 86-year-old woman who presented with shortness of breath. Since 2012, she has been managed conservatively by her primary vp patient, Dr. Duarte for mild mitral and mild aortic stenosis. On this presentation, she was recommended for right and left heart catheterization for further assessment of her aortic and mitral stenotic lesions. PROCEDURE: The patient was prepped and draped in a sterile fashion after informed consent. The right femoral artery was entered using the Seldinger technique followed by placement of a 6-Uzbek sheath. Similarly, the right femoral vein was entered and an 8 Uzbek sheath placed. A Gardiner-Mandy catheter was then advanced into the pulmonary artery position. A right Judkin's catheter was advanced into the left ventricle. Simultaneous right and left heart filling pressures were measured. Cardiac output was measured using the thermodilution method. The Gardiner-Mandy catheter was then withdrawn through the right heart, and right heart pressures were measured on pullback of the Gardiner-Mandy. The right Rick catheter was then pulled back across the aortic valve for transaortic pressure measurements. Selective right and left coronary angiography was then performed using the right Rick, and a #4 left Rick. The catheters were then removed, sheaths removed in the arterial site and hemostasis achieved over the arterial site using an Angio-Seal device. Manual compression was used for hemostasis over the venous site. The procedure was well tolerated by the patient and there were no complications. FINDINGS: HEMODYNAMICS: The mean right atrial pressure was 8. Right ventricular pressure was 40/10. Pulmonary artery pressure was 40/20. The mean pulmonary artery wedge pressure was 20-25. Left ventricular end-diastolic pressure was 20. Cardiac output was 4.5 liters per minute. MITRAL STENOSIS: Simultaneous left ventricular end diastolic and pulmonary artery wedge pressures revealed a mean transmitral valve gradient of 10.6 mmHg. Using the Gorlin equation, the mitral valve area was calculated at 1.7 square cm. This was consistent with mild to moderate mitral stenosis. AORTIC STENOSIS: On pullback across the aortic valve, the transaortic aehy-om-qnfe gradient was 15-20 mmHg. This was consistent with only mild aortic stenosis. CORONARY ANGIOGRAPHY: The left main coronary artery was angiographically normal. There were mild irregularities of the mid LAD, mild irregularities of the diagonal branches. No significant obstructive lesions were noted in the LAD system. The circumflex artery was a large dominant system, that also contained mild luminal irregularities with no significant obstructive lesions. The right coronary artery was a small caliber nondominant vessel that was angiographically normal. Left ventricle angiography was not performed. Echocardiogram has previously documented a normal left ventricular systolic function. CONCLUSION: 1. Mild to moderate increase in right and left heart filling pressures, mild pulmonary hypertension. 2. Mild to moderate mitral stenosis, with a transmitral pressure gradient of 10.6, mitral valve area 1.76 square cm. 3. Mild aortic stenosis with a transaortic gvzl-cf-pxpq gradient of 15-20 mmHg. 4. No significant coronary artery disease, essentially angiographically near normal coronary arteries. Left circumflex system is dominant. RECOMMENDATION: 1. Continue conservative management of aortic and mitral stenosis. If symptoms persist, further evaluation of mitral valve pathology with a transesophageal echocardiography should be considered. 2. Risk factor modification and medical therapy. Assist in timing of possible intervention. [facility]# [id number] SREE/BURAK
[2017-02-20 19:30] VITALS: BP 123/59
== END 2017-02-20 18:30 | disposition home or self-care (01) | DRG 392 ==
LOC: ED 11:24 → 4A 15:54
PROVIDERS: ADMIT Internal Medicine; ATTEND Internal Medicine
PROC: 4A023N8 Measurement of Cardiac Sampling and Pressure, Bilateral, Percutaneous Approach (ICD-10-PCS; principal; 2017-02-20)
PROC: B2111ZZ Fluoroscopy of Multiple Coronary Arteries using Low Osmolar Contrast (ICD-10-PCS; 2017-02-20)
DX: K21.9 Gastro-esophageal reflux disease without esophagitis (principal); I35.0 Nonrheumatic aortic (valve) stenosis; E66.9 Obesity, unspecified; I05.0 Rheumatic mitral stenosis; Z83.3 Family history of diabetes mellitus; Z82.49 Family history of ischemic heart disease and other diseases of the circulatory system; Z68.31 Body mass index [BMI] 31.0-31.9, adult
CPT/HCPCS: 36415; 71010; 80048; 80061; 82550; 82553; 84484; 85007; 85025; 85610; 85730; 93005; 93010; 93306; 93460; 96374; 96375; C1760; C1769; C1894; J1644; J2250; J2270; J2405; J2785; J3010; J7030; J7040; Q9967

== ENCOUNTER 2018-03-23 09:50 | Outpatient (CLI) | payer OTHER, MEDICARE | END 2018-03-23 09:51 | disposition home or self-care (01) | LOC: LABHHL 09:50 | PROVIDERS: ATTEND Surgery | DX: L82.1 Other seborrheic keratosis (principal); K21.9 Gastro-esophageal reflux disease without esophagitis; E66.9 Obesity, unspecified; M06.9 Rheumatoid arthritis, unspecified | CPT/HCPCS: 88304 ==

== ENCOUNTER 2019-03-20 15:49 | Emergency (ER) | payer MEDICARE ==
--- NOTE | 2019-03-20 15:54 | Emergency Department Report ---
Blank Doc - Documentation Documentation: This is a 88-year-old female that presents with left lower abdominal pain. Also has cough wit chest congestion. Deneis any n/v. This initial assessment/diagnostic orders/clinical plan/treatment(s) is/are subject to change based on patient's health status, clinical progression and re- assessment by fellow clinical providers in the ED. Further treatment and workup at subsequent clinical providers discretion. Patient/guardians urged not to elope from the ED as their condition may be serious if not clinically assessed and managed. Initial orders include: 1- Patient sent to MAIN ED for further evaluation and treatment 2- labs 3- UA 4- Xr abd
--- NOTE | 2019-03-20 16:32 | XRay Report ---
PROCEDURE: XR ABD SERIES W CXR 1V TECHNIQUE: Flat and upright view of the abdomen were obtained as well as a PA chest x-ray HISTORY: abd pain with cough COMPARISONS: None FINDINGS: The heart is enlarged. Calcification of the mitral annulus appears to be present. The pulmonary vascu lature minimally distended although appears sharp. No pulmonary edema or pleural effusions identified . Small amount of left basilar atelectasis appears to be present. Lungs otherwise are clear. No effus ions are seen. No acute bone abnormalities are identified. Nonspecific bowel gas pattern present. No evidence for obstruction, ileus or free air. Moderate amoun t of stool seen throughout most of the colon. There is a coarse calcification overlying the pelvis me asuring approximately 2.7 cm which may represent a calcified uterine fibroid. IMPRESSION: Mild cardiomegaly and pulmonary venous hypertension changes. Small amount of left basilar atelectasis appears to be present. Calcification of mitral annulus also suspected. Coarse calcification lower pelvis suggest calcified uterine fibroid. Moderate amount of stool seen throughout colon. No acute abnormalities are identified.. This document is electronically signed by Ricci Gan MD., Mar 20 2019 04:29:46 PM ET
[2019-03-20 16:59] LABS: Bilirubin,Urine NEG (Negative); Blood,Urine NEG (Negative); Color,Urine Yellow (Yellow); Mucus,Urine FEW /HPF
[2019-03-20 16:59] LABS: Basophils % (Auto) 0.2 % (0.0-1.8); Eosinophils # (Auto) 0.4 K/mm3 (0.0-0.4); Eosinophils % (Auto) 3.7 % (0.0-4.3); Hematocrit 37.1 % (30.3-42.9); Hemoglobin 12.3 gm/dl (10.1-14.3); Lymphocytes # (Auto) 2.3 K/mm3 (1.2-5.4); Lymphocytes % (Auto) 23.6 % (13.4-35.0); Mean Corpuscular HGB Conc 33 % (30-34); Mean Corpuscular Volume 86 fl (79-97); Monocytes # (Auto) 0.9 K/mm3 (0.0-0.8); Monocytes % (Auto) 8.8 % (0.0-7.3); Platelet Count 201 K/mm3 (140-440); Red Blood Count 4.31 M/mm3 (3.65-5.03); Red Cell Distribution Width 14.2 % (13.2-15.2)
[2019-03-20 17:24] LABS: Alanine Aminotransferase 16 units/L (7-56); Albumin 3.5 g/dL (3.9-5); BUN/Creatinine Ratio 24; Blood Urea Nitrogen 12 mg/dL (7-17); Calcium 9.2 mg/dL (8.4-10.2); Hemolysis Index 1
[2019-03-20 17:25] LABS: Bilirubin,Direct < 0.2 mg/dL (0-0.2)
--- NOTE | 2019-03-20 18:27 | Emergency Department Report ---
ED General Adult HPI - General Chief complaint: Abdominal Pain Stated complaint: ABD PAIN Time Seen by Provider: 03/20/19 15:52 Source: patient Mode of arrival: Ambulatory Limitations: No Limitations - History of Present Illness Initial comments: 88-year-old relatively healthy of [place] female with past medical history of GERD sent to the emergency department by Dr. ALICIA Lewis for evaluation of shortness of breath, any productive cough. Due to his assessment to date. States that today he she will have 1-2 week history of cough and congestion associated chest pain. States she's had a heavy mucous production and occasional fever sensations. No nausea, vomiting or diarrhea. No palpitations. Ms. Aden states that she's been having some yellow mucus production rather frequently and coughing spells call surgically did get achy, sharp pain to the left rib region. She reports no hemoptysis, hematemesis, hematochezia. No foreign travel, no kn own sick contacts. She denies any wheezing. Stated that she is still mobile however, this does cause coughing spells. Denies any loss of bowel or bladder, back pain. To be having some dark urine was increased urgency. No burning sensation. No hematuria noted. She denies any trauma. Denies any abdominal pain. States that she did have some pain is a few weeks ago, but that is not an issue today. Nor was it an issue yesterday. Radiation: non-radiation Quality: dull Consistency: constant - Related Data Home Medications Medication Instructions Recorded Confirmed Last Taken HYDROcodone/ACETAMINOPHEN 1 tab PO PRN 12/26/13 02/16/17 02/16/17 [Hydrocodon-Acetaminoph 7.5-325] Meloxicam [Mobic] 15 mg PO DAILY 02/16/17 02/16/17 Unknown diazePAM [Diazepam] 10 mg PO QHS 02/16/17 02/16/17 02/15/17 Previous Rx's Medication Instructions Recorded Last Taken Type Pantoprazole [Protonix TAB] 40 mg PO QDAY #30 tablet 02/20/17 Unknown Rx ALBUTEROL Inhaler (OR & NICU) 1 puff IH Q4-6H PRN #1 inha 03/21/19 Unknown Rx [ProAir HFA Inhaler] Azithromycin [Zithromax] 250 mg PO QDAY #4 tablet 03/21/19 Unknown Rx levoFLOXacin [Levaquin TAB] 500 mg PO QDAY #7 tablet 03/21/19 Unknown Rx Allergies Allergy/AdvReac Type Severity Reaction Status Date / Time No Known Allergies Allergy Unverified 12/26/13 15:50 ED Review of Systems ROS: Stated complaint: ABD PAIN Other details as noted in HPI Constitutional: denies: chills, fever Eyes: denies: eye pain, eye discharge, vision change ENT: denies: ear pain, throat pain Respiratory: denies: cough, shortness of breath, wheezing Cardiovascular: denies: chest pain, palpitations Endocrine: no symptoms reported Gastrointestinal: denies: abdominal pain, nausea, diarrhea Genitourinary: denies: urgency, dysuria, discharge Musculoskeletal: denies: back pain, joint swelling, arthralgia Skin: denies: rash, lesions Neurological: denies: headache, weakness, paresthesias Psychiatric: denies: anxiety, depression Hematological/Lymphatic: denies: easy bleeding, easy bruising ED Past Medical Hx - Past Medical History Previous Medical History?: Yes Hx GERD: Yes Hx Arthritis: Yes - Surgical History Past Surgical History?: Yes Additional Surgical History: Knee surgery - Social History Smoking Status: Never Smoker - Medications Home Medications: Home Medications Medication Instructions Recorded Confirmed Last Taken Type HYDROcodone/ACETAMINOPHEN 1 tab PO PRN 12/26/13 02/16/17 02/16/17 History [Hydrocodon-Acetaminoph 7.5-325] Meloxicam [Mobic] 15 mg PO DAILY 02/16/17 02/16/17 Unknown History diazePAM [Diazepam] 10 mg PO QHS 02/16/17 02/16/17 02/15/17 History Pantoprazole [Protonix TAB] 40 mg PO QDAY #30 tablet 02/20/17 Unknown Rx ALBUTEROL Inhaler (OR & NICU) 1 puff IH Q4-6H PRN #1 inha 03/21/19 Unknown Rx [ProAir HFA Inhaler] Azithromycin [Zithromax] 250 mg PO QDAY #4 tablet 03/21/19 Unknown Rx levoFLOXacin [Levaquin TAB] 500 mg PO QDAY #7 tablet 03/21/19 Unknown Rx ED Physical Exam - General Limitations: No Limitations General appearance: alert, in no apparent distress - Head Head exam: Present: atraumatic, normocephalic - Eye Eye exam: Present: normal appearance, PERRL, EOMI Pupils: Present: normal accommodation - ENT ENT exam: Present: normal exam, mucous membranes moist - Neck Neck exam: Present: normal inspection - Respiratory Respiratory exam: Present: normal lung sounds bilaterally, wheezes, rhonchi. Absent: respiratory distress, chest wall tenderness, accessory muscle use, decreased breath sounds - Cardiovascular Cardiovascular Exam: Present: regular rate, normal rhythm. Absent: systolic murmur, diastolic murmur, rubs, gallop - GI/Abdominal GI/Abdominal exam: Present: soft, normal bowel sounds - Extremities Exam Extremities exam: Present: normal inspection - Back Exam Back exam: Present: normal inspection - Neurological Exam Neurological exam: Present: alert, oriented X3 - Psychiatric Psychiatric exam: Present: normal affect, normal mood - Skin Skin exam: Present: warm, dry, intact, normal color. Absent: rash ED Course Vital Signs 03/20/19 03/21/19 15:53 01:52 Temperature 98.7 F 98.6 F Pulse Rate 88 78 Respiratory 16 16 Rate Blood Pressure 165/70 139/59 O2 Sat by Pulse 98 98 Oximetry ED Medical Decision Making - Lab Data Result diagrams: 03/20/19 16:39 03/20/19 16:39 - Medical Decision Making 88-year-old relatively healthy of [place] female with past medical history of GERD sent to the emergency department by Dr. ALICIA Lewis for evaluation of shortness of breath, any productive cough. Due to his assessment to date. States that today he she will have 1-2 week history of cough and congestion associated chest pain. States she's had a heavy mucous production and occasional fever sensatio ns. No nausea, vomiting or diarrhea. No palpitations. Critical care attestation.: If time is entered above; I have spent that time in minutes in the direct care of this critically ill patient, excluding procedure time. ED Disposition Clinical Impression: Pulmonary infiltrate present on computed tomography, Cough Condition: Stable Instructions: Cold Symptoms (ED), Bacterial Pneumonia (ED), Pneumonia (ED) Prescriptions: levoFLOXacin [Levaquin TAB] 500 mg PO QDAY #7 tablet ALBUTEROL Inhaler (OR & NICU) [ProAir HFA Inhaler] 1 puff IH Q4-6H PRN #1 inha PRN Reason: Cough Azithromycin [Zithromax] 250 mg PO QDAY #4 tablet Referrals: CHAYO RESENDIZTAMPA MD LAWRENCE [Primary Care Provider] - 3-5 Days
--- NOTE | 2019-03-20 20:57 | XRay Report ---
PROCEDURE: XR CHEST 1V AP TECHNIQUE: Chest radiograph single view. HISTORY: sob and chest pain COMPARISONS: 02/16/2017 . FINDINGS: Heart: Heart is enlarged. Mediastinum/Vessels: Normal. Lungs/Pleural space: Lungs are expanded. There are mild fibrotic changes. There are no acute infiltr ates. There is no pleural effusion or pneumothorax.. Bony thorax: No acute osseous abnormality. Life support devices: None. IMPRESSION: No acute cardiopulmonary abnormality. This document is electronically signed by Duc Gonzalez MD., Mar 20 2019 08:55:03 PM ET
--- NOTE | 2019-03-21 00:43 | Cat Scan Report ---
PROCEDURE: CT ANGIO CHEST TECHNIQUE: Computerized tomographic angiography of the chest was performed after the IV injection of iodinated nonionic contrast including image processing. The image data was postprocessed using 2-di mensional multiplanar reformatted (MPR) and 3-dimensional (MIP and/or volume rendered) techniques. Au tomated exposure control, adjustment of mA and/or kV according to patient size, or iterative reconstr uction dose optimization techniques were utilized. CT DOSE LENGTH PRODUCT: mGycm HISTORY: sob and productive cough COMPARISONS: None . FINDINGS: Heart and pericardium: Normal. Thoracic aorta: There is calcified plaque in the thoracic aorta. There is no aneurysm or dissection. Pulmonary vasculature: Normal. Lymph nodes: No enlarged thoracic lymph nodes. Lungs: Lungs are expanded. There is thickening of the lower lobe bronchi bilaterally greater on the right. There are bilateral lower lobe infiltrates greater on the right. Pleural space: There is no pleural effusion or pneumothorax.. Musculoskeletal structures: No significant abnormality. Upper abdominal structures: No significant abnormality. IMPRESSION: The heart size is normal. There is no pulmonary embolism. There is calcified plaque in the thoracic aorta. There is no aneurysm or dissection Lungs are expanded. There is thickening of the lower lobe bronchi bilaterally greater on the right. T here are bilateral lower lobe infiltrates greater on the right. There is no pleural effusion or pneumothorax. This document is electronically signed by Duc Gonzalez MD., Mar 21 2019 12:41:49 AM ET
[2019-03-21] MEDS ORDERED: ROCEPHIN IM STA (01:30)
[2019-03-21] MEDS ORDERED: XYLOCAINE 1% MPF 5 mL INFILTRATI ONE (01:30)
[2019-03-21] MEDS ORDERED: ZITHROMAX PO STA (01:30)
[2019-03-21 01:54] VITALS: BP 139/59
== END 2019-03-21 03:30 | disposition home or self-care (01) ==
LOC: ED 15:49
DX: R91.8 Other nonspecific abnormal finding of lung field (principal); R05 Cough; K21.9 Gastro-esophageal reflux disease without esophagitis; M19.90 Unspecified osteoarthritis, unspecified site
CPT/HCPCS: 36415; 71045; 71275; 74022; 80048; 80076; 81001; 83690; 83880; 84484; 85025; 87086; 93005; 93010; 96372; 99284; J0696; Q9967

== ENCOUNTER 2020-07-28 14:11 | Emergency (ER) | payer MEDICARE, OTHER ==
--- NOTE | 2020-07-28 15:29 | Vascular Lab Report ---
DUPLEX DOPPLER UPPER EXTREMITY VENOUS, RIGHT INDICATION / CLINICAL INFORMATION: Acute right upper cavity pain and swelling. TECHNIQUE: Duplex doppler imaging was performed through the veins of the right upper extremity using venous comp ression and other maneuvers. COMPARISON: None available. FINDINGS: RIGHT INTERNAL JUGULAR VEIN: Negative. RIGHT SUBCLAVIAN VEIN: Negative. RIGHT AXILLARY VEIN: Negative. RIGHT BRACHIAL VEIN: Negative. RIGHT FOREARM VEINS: Negative. RIGHT BASILIC VEIN (SUPERFICIAL): Negative. ADDITIONAL FINDINGS: None. IMPRESSION: 1. No sonographic evidence for DVT. Signer Name: Darin Wright MD Signed: 07/28/2020 3:25 PM Workstation Name: [id number]
[2020-07-28] MEDS ORDERED: oxyCODONE /ACETAMINOPHEN 5-325MG TAB PO ONE (15:50)
[2020-07-28 17:25] LABS: Alanine Aminotransferase 27 units/L (7-56); Basophils % (Auto) 0.4 % (0.0-1.8); Blood Urea Nitrogen 9 mg/dL (7-17); Calcium 9.3 mg/dL (8.4-10.2); Eosinophils % (Auto) 0.1 % (0.0-4.3); Hematocrit 39.3 % (30.3-42.9); Hemoglobin 12.7 gm/dl (10.1-14.3); Hemolysis Index 31; Lymphocytes # (Auto) 1.1 K/mm3 (1.2-5.4); Lymphocytes % (Auto) 12.8 % (13.4-35.0); Mean Corpuscular HGB Conc 33 % (30-34); Mean Corpuscular Volume 89 fl (79-97); Monocytes # (Auto) 0.7 K/mm3 (0.0-0.8); Monocytes % (Auto) 8.3 % (0.0-7.3); Platelet Count 198 K/mm3 (140-440); Red Cell Distribution Width 14.4 % (13.2-15.2)
--- NOTE | 2020-07-28 17:25 | XRay Report ---
RIGHT ELBOW 3 VIEWS INDICATION / CLINICAL INFORMATION: Right elbow pain and swelling with erythema. Patient reports waking with right arm pain and limited r ana of motion without a known injury. COMPARISON: None available. FINDINGS: BONES and JOINT(S): No acute fracture or subluxation. There is severe erosive arthritis along the elb ow, more significant medially than laterally. The bones are demineralized. SOFT TISSUES: No significant abnormality. ADDITIONAL FINDINGS: None. IMPRESSION: 1. No acute findings. 2. 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 Signer Name: Darin Wright MD Signed: 07/28/2020 5:20 PM Workstation Name: [id number]
[2020-07-28 17:26] LABS: BUN/Creatinine Ratio 18
[2020-07-28 17:38] LABS: Uric Acid 3.9 mg/dL (3.5-7.6)
[2020-07-28] MEDS ORDERED: VANCOMYCIN 1,500 MG in SODIUM CHLORIDE 0.9% 500 ML 500 ML IV ONE (19:00)
[2020-07-28] MEDS ORDERED: VANCOMYCIN PHARMACY TO DOSE IV SCH (19:00)
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
[2020-07-28 21:04] VITALS: BP 158/60
[2020-07-28] MEDS ORDERED: MORPHINE 4 MG/1 ML INJ IV ONE (22:33)
[2020-07-28] MEDS ORDERED: ONDANSETRON 4 MG/2 ML INJ IV ONE (22:33)
[2020-07-28] MEDS ORDERED: MORPHINE 4 MG/1 ML INJ ONE (22:35)
[2020-07-28] MEDS ORDERED: ONDANSETRON 4 MG/2 ML INJ ONE (22:35)
== END 2020-07-28 22:30 | disposition other institution (70) ==
LOC: ED 14:11
DX: M00.9 Pyogenic arthritis, unspecified (principal); K21.9 Gastro-esophageal reflux disease without esophagitis; M19.90 Unspecified osteoarthritis, unspecified site; Z79.899 Other long term (current) drug therapy
CPT/HCPCS: 36415; 73070; 80053; 84550; 85025; 85652; 86140; 93971; 96365; 96366; 96375; 99284; J2270; J2405; J3370; J7040

== ENCOUNTER 2021-11-02 13:37 | Emergency (ER) | payer MEDICARE ==
[2021-11-02 13:47] VITALS: BP 142/46
--- NOTE | 2021-11-02 13:48 | Emergency Department Report ---
Blank Doc - Documentation Documentation: 89-year-old female who presents with chest pain and shortness of breath and ch est tightness. Daughter was present at the bedside and stated she was coming to emergency room for symptoms of cardiac and well coming to the ED she had a trip and fall and has lower back pain. Neuro physical exam is remarkable. No cervical spine midline or thoracic spine midline tenderness. 1- This is a initial triage assessment/medical screening only. Full assessment and work-up will be completed once the patient is in proper hospital gown, ED bed and in a private room setting. This initial assessment/diagnostic orders/clinical plan/ treatment(s) is/are subject to change based on pt's health status, clinical progression and re-assessment by fellow clinical providers in the ED. Further treatment and workup at subsequent clinical providers discretion. Patient/guardians urged not to elope from ED as their condition may be serious if not clinically assessed and managed. 2-cardiac workup 3-xrays The patient was evaluated in the emergency department for symptoms described in the history of present illness. He/she was evaluated in the context of the global COVID-19 pandemic, which necessitated consideration that the patient might be at risk for infection with the virus that causes COVID-19. Institutional protocols and algorithms that pertain to the evaluation of patients at risk for COVID-19 are in a state of rapid change based on information released by regulatory bodies including the CDC and federal and state organizations. These policies and algorithms were followed during the patient's care in the emergency department. Please note that these policies, procedures and recommendations changed on a rapid basis.
--- NOTE | 2021-11-02 14:55 | XRay Report ---
LUMBAR SPINE 3 VIEWS INDICATION / CLINICAL INFORMATION: pain s/p fall COMPARISON: None available. FINDINGS: BONES / JOINT(S): Satisfactory alignment. Mild irregularity along the superior endplate of L5 is age indeterminate. Prominent underlying osteopenia. No significant degenerative change. SOFT TISSUES: Calcified uterine fibroid. ADDITIONAL FINDINGS: None. Signer Name: Miguel Sinha MD Signed: 11/02/2021 2:50 PM Workstation Name: [id number]
--- NOTE | 2021-11-02 14:55 | XRay Report ---
CHEST 2 VIEWS INDICATION: Chest Pain. COMPARISON: 03/20/2019. FINDINGS: Support devices: None. Heart: Within normal limits. Lungs/Pleura: No acute air space or interstitial disease. No significant pleural effusion. IMPRESSION: No acute findings. Signer Name: Miguel Sinha MD Signed: 11/02/2021 2:51 PM Workstation Name: [id number]
--- NOTE | 2021-11-02 14:57 | XRay Report ---
PELVIS ONE VIEW INDICATION / CLINICAL INFORMATION: pain s/p fall COMPARISON: None available. FINDINGS: BONES / JOINT(S): No acute fracture or subluxation. Underlying osteopenia. Mild symmetric degenerativ e change at the hips. SOFT TISSUES: Calcified uterine fibroid. ADDITIONAL FINDINGS: None. Signer Name: Miguel Sinha MD Signed: 11/02/2021 2:52 PM Workstation Name: [id number]
[2021-11-02] MEDS ORDERED: MORPHINE 4 MG/1 ML INJ IV ONE (16:46)
[2021-11-02] MEDS ORDERED: ONDANSETRON 4 MG/2 ML INJ IV ONE (16:46)
--- NOTE | 2021-11-02 16:51 | Emergency Department Report ---
ED General Adult HPI - General Chief complaint: Chest Pain Stated complaint: CHEST PAIN Time Seen by Provider: 11/02/21 13:45 Source: patient, family Mode of arrival: Wheelchair Limitations: No Limitations - History of Present Illness Initial comments: Ms. Aden is 89 years old female with no significant past medical history except for arthritis and a heart murmur. Patient brought to the emergency room by her daughter for evaluation of right sided chest pain that has been going on for 2-1/2 weeks now. Daughter stated that while she is coming to the hospital for assessment she tripped and fell and now is complaining of lower back pain and hip pain. Patient and daughter denied any head injury or neck injury. Patient describes her chest pain as sharp with no radiation. She stated that is not intermittent. Patient denies any fever or chills. She also denied any nausea, vomiting, diarrhea or abdominal pain. She stated that she received 3 doses of COVID-19 vaccine. -: week(s) Location: chest, back, lower extremity Severity scale (0 -10): 0 Quality: sharp Associated Symptoms: denies other symptoms - Related Data Home Medications Medication Instructions Recorded Confirmed Last Taken HYDROcodone/ACETAMINOPHEN 1 tab PO PRN 12/26/13 02/16/17 02/16/17 [Hydrocodon-Acetaminoph 7.5-325] Meloxicam [Mobic] 15 mg PO DAILY 02/16/17 02/16/17 Unknown diazePAM [Diazepam] 10 mg PO QHS 02/16/17 02/16/17 02/15/17 Previous Rx's Medication Instructions Recorded Last Taken Type Pantoprazole [Protonix TAB] 40 mg PO QDAY #30 tablet 02/20/17 Unknown Rx Albuterol Mdi (or & Nicu Only) 1 puff IH Q4-6H PRN #1 inha 03/21/19 Unknown Rx [ProAir HFA Inhaler] Azithromycin [Zithromax] 250 mg PO QDAY #4 tablet 03/21/19 Unknown Rx levoFLOXacin [Levaquin TAB] 500 mg PO QDAY #7 tablet 03/21/19 Unknown Rx Allergies Allergy/AdvReac Type Severity Reaction Status Date / Time No Known Allergies Allergy Unverified 12/26/13 15:50 ED Review of Systems ROS: Stated complaint: CHEST PAIN Other details as noted in HPI Comment: All other systems reviewed and negative Constitutional: denies: chills, weakness Respiratory: denies: cough, shortness of breath, SOB with exertion, SOB at rest, wheezing Cardiovascular: chest pain. denies: palpitations Gastrointestinal: denies: abdominal pain, nausea, diarrhea, constipation, hematemesis Musculoskeletal: denies: back pain Neurological: denies: headache, weakness, numbness, paresthesias, confusion ED Past Medical Hx - Past Medical History Hx GERD: Yes Hx Arthritis: Yes - Surgical History Additional Surgical History: Knee surgery - Social History Smoking Status: Never Smoker - Medications Home Medications: Home Medications Medication Instructions Recorded Confirmed Last Taken Type HYDROcodone/ACETAMINOPHEN 1 tab PO PRN 12/26/13 02/16/17 02/16/17 History [Hydrocodon-Acetaminoph 7.5-325] Meloxicam [Mobic] 15 mg PO DAILY 02/16/17 02/16/17 Unknown History diazePAM [Diazepam] 10 mg PO QHS 02/16/17 02/16/17 02/15/17 History Pantoprazole [Protonix TAB] 40 mg PO QDAY #30 tablet 02/20/17 Unknown Rx Albuterol Mdi (or & Nicu Only) 1 puff IH Q4-6H PRN #1 inha 03/21/19 Unknown Rx [ProAir HFA Inhaler] Azithromycin [Zithromax] 250 mg PO QDAY #4 tablet 03/21/19 Unknown Rx levoFLOXacin [Levaquin TAB] 500 mg PO QDAY #7 tablet 03/21/19 Unknown Rx ED Physical Exam - General Limitations: No Limitations General appearance: alert, in no apparent distress - Head Head exam: Present: atraumatic, normocephalic, normal inspection - ENT ENT exam: Present: normal exam, normal orophraynx, mucous membranes moist - Neck Neck exam: Present: normal inspection, full ROM. Absent: tenderness, meningi smus - Respiratory Respiratory exam: Present: normal lung sounds bilaterally - Cardiovascular Cardiovascular Exam: Present: regular rate, normal rhythm, normal heart sounds - GI/Abdominal GI/Abdominal exam: Present: soft, normal bowel sounds. Absent: distended, tenderness, guarding, rebound, rigid, organomegaly, mass, bruit, pulsatile mass, hernia - Extremities Exam Extremities exam: Present: normal inspection, full ROM, normal capillary refill. Absent: tenderness, calf tenderness - Back Exam Back exam: Present: normal inspection, full ROM. Absent: CVA tenderness (R), CVA tenderness (L) - Neurological Exam Neurological exam: Present: alert, oriented X3, CN II-XII intact - Psychiatric Psychiatric exam: Present: normal mood - Skin Skin exam: Present: warm, intact, normal color ED Course Vital Signs 11/02/21 11/02/21 13:47 21:04 Pulse Rate 90 Respiratory 15 14 Rate Blood Pressure 142/46 [Left] O2 Sat by Pulse 97 Oximetry ED Medical Decision Making - Lab Data Result diagrams: 11/02/21 17:09 11/02/21 17:09 - EKG Data -: EKG Interpreted by Al EKG shows normal: sinus rhythm Rate: normal - EKG Data Interpretation: no acute changes - Radiology Data Radiology results: report reviewed - Medical Decision Making Ms. Aden is 89 years old female with no significant past medical history except for arthritis and a heart murmur. Patient brought to the emergency room by her daughter for evaluation of right sided chest pain that has been going on for 2-1/2 weeks now. Daughter stated that while she is coming to the hospital for assessment she tripped and fell and now is complaining of lower back pain and hip pain. Patient and daughter denied any head injury or neck injury. Patient describes her chest pain as sharp with no radiation. She stated that is not intermittent. Patient denies any fever or chills. She also denied any nausea, vomiting, diarrhea or abdominal pain. She stated that she received 3 doses of COVID-19 vaccine. Patient remained stable in the ER with a stable vital sign. Labs reviewed and is unremarkable except for significantly elevated D-dimer of more than 10,000. CTA chest is negative for PE or any other pathology. Patient received morphine and Zofran and stated that she is feeling much better. Troponin is negative x2 even though patient chest pain is atypical however patient and daughter strongly advised to follow-up with primary care physician for outpatient cardiac work-up and to return to the ER if she develop any new symptoms. Critical care attestation.: If time is entered above; I have spent that time in minutes in the direct care of this critically ill patient, excluding procedure time. ED Disposition Clinical Impression: Chest pain Disposition: HOME / SELF CARE / HOMELESS Is pt being admited?: No Condition: Stable Instructions: Nonspecific Chest Pain, Adult Referrals: MARGIE GLEASON MD [Primary Care Provider] - 3-5 Days
[2021-11-02 17:31] LABS: Basophils # (Auto) 0.2 K/mm3 (0.0-0.1); Basophils % (Auto) 1.8 % (0.0-1.8); Eosinophils # (Auto) 0.1 K/mm3 (0.0-0.4); Eosinophils % (Auto) 1.4 % (0.0-4.3); Hematocrit 37.3 % (30.3-42.9); Hemoglobin 11.9 gm/dl (10.1-14.3); Lymphocytes # (Auto) 1.7 K/mm3 (1.2-5.4); Lymphocytes % (Auto) 19.8 % (13.4-35.0); Mean Corpuscular HGB Conc 32 % (30-34); Mean Corpuscular Volume 86 fl (79-97); Monocytes # (Auto) 0.7 K/mm3 (0.0-0.8); Monocytes % (Auto) 7.5 % (0.0-7.3); Platelet Count 236 K/mm3 (140-440); Red Blood Count 4.34 M/mm3 (3.65-5.03)
[2021-11-02 17:44] LABS: INR 1.16 (0.87-1.13); Partial Thromboplastin Time 28.2 Sec. (24.2-36.6)
[2021-11-02 17:46] LABS: Alanine Aminotransferase 19 units/L (7-56); Albumin 3.9 g/dL (3.9-5); BUN/Creatinine Ratio 26; Blood Urea Nitrogen 13 mg/dL (7-17); Calcium 9.7 mg/dL (8.4-10.2); Hemolysis Index 2
[2021-11-02] MEDS ORDERED: MORPHINE 2 MG/1 ML INJ IV ONE (20:48)
[2021-11-02] MEDS ORDERED: ONDANSETRON 4 MG ODT TAB PO ONE (20:48)
--- NOTE | 2021-11-02 22:15 | Cat Scan Report ---
CTA CHEST WITH CONTRAST INDICATION / CLINICAL INFORMATION: Patient complains of RIGHT sided chest pain.. TECHNIQUE: Axial CT images were obtained through the chest after injection of IV contrast. 3 plane NH P and/or 3D reconstructions were produced. All CT scans at this location are performed using CT dose reduction for ALARA by means of automated exposure control. COMPARISON: CTA chest 03/20/2019 FINDINGS: PULMONARY ARTERIES: No pulmonary emboli. Dilated main pulmonary arteries, suggesting pulmonary arteri al hypertension. THORACIC AORTA: Moderate atherosclerotic calcification without acute abnormality. HEART: No significant abnormality. CORONARY ARTERY CALCIFICATION: Multivessel MEDIASTINUM / KYLAH: No significant abnormality. PLEURA: No pleural effusion. No pneumothorax. LUNGS: No acute air space or interstitial disease. ADDITIONAL FINDINGS: None. UPPER ABDOMEN: No acute findings. SKELETAL STRUCTURES: No significant osseous abnormality. IMPRESSION: 1. No CT evidence for pulmonary embolism. 2. No acute findings. 3. Chronic findings as above. Signer Name: Chung Prabhakar MD Signed: 11/02/2021 10:11 PM Workstation Name: [id number]
--- NOTE | 2021-11-03 10:12 | Electrocardiograph Report ---
[facility] Test Date: 2021-11-02 Test Time: 20:00:20 Pat Name: JANET GORDILLO Department: Room: Gender: F Electronic Transaction Implementer: BENEDICT : 1930 Requested By: HALLE ALVAREZ Order Number: [id number] Reading MD: Zia Cottrell Measurements Intervals [place] Rate: 84 P: 42 VA: 158 QRS: -13 QRSD: 93 T: 55 QT: 384 QTc: 454 Interpretive Statements Sinus rhythm Consider left ventricular hypertrophy No previous ECG available for comparison Electronically Signed On 11-03-2021 10:12:08 EST by Zia Cottrell
== END 2021-11-02 23:41 | disposition home or self-care (01) ==
LOC: ED 13:37
DX: R07.9 Chest pain, unspecified (principal)
CPT/HCPCS: 36415; 71046; 71275; 72100; 72170; 80053; 83735; 84484; 85025; 85379; 85610; 85730; 93005; 96374; 99285; J2270; Q9967; J3490; Q0162